=== PATIENT | female | born 1970 | race Caucasian/White ===

== ENCOUNTER 2020-01-17 10:26 | Outpatient (RCR) | payer OTHER | END 2020-04-16 | disposition home or self-care (01) | LOC: WSOH | DX: S16.1XXA Strain of muscle, fascia and tendon at neck level, initial encounter (principal); R20.9 Unspecified disturbances of skin sensation; Y99.0 Civilian activity done for income or pay; Z90.49 Acquired absence of other specified parts of digestive tract; Z98.51 Tubal ligation status ==